=== PATIENT | male | born 1980 | race African-American/Black ===

== ENCOUNTER 2016-12-15 16:21 | Emergency (ER) | payer OTHER ==
[2016-12-15] MEDS ORDERED: ASPIRIN 81 MG TABLET, CHEWABLE PO ONE (17:13)
--- NOTE | 2016-12-15 17:13 | ER Document Report ---
ED Neck/Back Problem - General Information source: Patient TRAVEL OUTSIDE OF THE [place] IN LAST 30 DAYS: No - HPI Patient complains to provider of: Pain Quality of pain: Sharp Associated symptoms: Other - see above <MARICRUZ COLINDRES - Last Filed: 12/15/16 17:48> <YEIMY PADGETT - Last Filed: 12/15/16 19:14> - General Chief Complaint: Back Pain Stated Complaint: BACK/CHEST PAIN Time Seen by Provider: 12/15/16 17:01 Notes: Patient is a 36 year old male who presents to the ED with complaints of sharp back pain that radiates into his chest. Patient states that he felt like a squeezing pressure around his chest and ribs and states the pain shot up his entire back. Patient states this has happened a couple times in the past but states today it lasted approximately 5 minutes where he was doubled over on the couch waiting for the pain to subside. Patient denies any SOB. Patient believes that this is stemming from a malfunction with his spinal nerve stimulator. (MARICRUZ COLINDRES) Past Medical History - General Information source: Patient - Social History Smoking Status: Unknown if Ever Smoked Family History: Reviewed & Not Pertinent - Past Medical History Cardiac Medical History: Denies: Hx Heart Attack Renal/ Medical History: Denies: Hx Peritoneal Dialysis <MARICRUZ COLINDRES - Last Filed: 12/15/16 17:48> - Social History Smoking Status: Former Smoker <YEIMY PADGETT - Last Filed: 12/15/16 19:14> Review of Systems - Review of Systems Constitutional: No symptoms reported EENT: No symptoms reported Cardiovascular: See HPI, Chest pain Respiratory: See HPI. denies: Short of breath Gastrointestinal: No symptoms reported Genitourinary: No symptoms reported Male Genitourinary: No symptoms reported Musculoskeletal: See HPI, Back pain Skin: No symptoms reported Hematologic/Lymphatic: No symptoms reported Neurological/Psychological: No symptoms reported <MARICRUZ COLINDRES - Last Filed: 12/15/16 17:48> Physical Exam <MARICRUZ COLINDRES - Last Filed: 12/15/16 17:48> <YEIMY PADGETT - Last Filed: 12/15/16 19:14> - Vital signs Vitals: Temp Pulse Resp BP Pulse Ox 97.7 F 78 20 135/92 H 97 12/15/16 16:32 12/15/16 16:32 12/15/16 16:32 12/15/16 16:32 12/15/16 16:32 - Notes Notes: GENERAL: Alert, interacts well. No acute distress. HEAD: Normocephalic, atraumatic. EYES: Pupils equal, round, and reactive to light. Extraocular movements intact. ENT: Oral mucosa moist, tongue midline. NECK: Full range of motion. Supple. Trachea midline. LUNGS: Clear to auscultation bilaterally, no wheezes, rales, or rhonchi. No respiratory distress. HEART: Regular rate and rhythm. No murmurs, gallops, or rubs. ABDOMEN: Soft, non-tender. Non-distended. Bowel sounds present in all 4 quadrants. EXTREMITIES: Moves all 4 extremities spontaneously. No edema. No cyanosis. NEUROLOGICAL: Alert and oriented x3. Normal speech. PSYCH: Normal affect, normal mood. SKIN: Warm, dry, normal turgor. No rashes or lesions noted. (MARICRUZ COLINDRES) Course - Laboratory Result Diagrams: 12/15/16 17:24 12/15/16 17:24 <MARICRUZ COLINDRES - Last Filed: 12/15/16 17:48> - Laboratory Result Diagrams: 12/15/16 17:24 12/15/16 17:24 <YEIMY PADGETT - Last Filed: 12/15/16 19:14> - Re-evaluation Re-evalutation: 12/15/16 18:47 CBC unremarkable with the exception of a monocytosis, CMP grossly unremarkable, cardiac enzymes negative, EKG nonischemic although there are some nonspecific T- wave inversions. Chest x-ray does not reveal any pneumonia or pneumothorax, x-ray of the spine does not reveal any major displacement of the spinal stimulator. Patient is planning on following up with the inserting physician tomorrow. This completely resolved now, I do not know the etiology of this pain however I have low suspicion for pulmonary embolism or aortic dissection. Patient will be discharged home (YEIMY PADGETT) - Vital Signs Vital signs: Temp Pulse Resp BP Pulse Ox 97.7 F 78 21 H 124/88 H 98 12/15/16 16:32 12/15/16 16:32 12/15/16 18:23 12/15/16 18:23 12/15/16 18:23 - Laboratory Laboratory results interpreted by me: 12/15/16 12/15/16 17:24 17:24 Monocytes % 13.2 H Calcium 10.7 H Creatine Kinase 288 H Discharge <MARICRUZ COLINDRES - Last Filed: 12/15/16 17:48> <YEIMY PADGETT - Last Filed: 12/15/16 19:14> - Discharge Clinical Impression: Chest pain not due to acute coronary syndrome, Situational hypertension Condition: Stable Disposition: HOME, SELF-CARE Additional Instructions: Please follow-up with the doctor who inserted your spinal stimulator. Consider turning it down if these pains happen again. Please return if your pain worsens , changes or you develop fever or shortness of breath or any new or concerning symptoms including numbness or tingling. Your blood pressure was elevated on the first 2 readings today however normalized by the time you were discharged. This elevated blood pressure is likely a reaction to pain and anxiety about the visit however it is important that you continue to have your blood pressure monitored by your primary care physician. Scribe Attestation: 12/15/16 19:14 I personally performed the services described in the documentation, reviewed and edited the documentation which was dictated to the scribe in my presence, and it accurately records my words and actions. (YEIMY PADGETT) Scribe Documentation - Scribe Written by Antony:: antony Pelaez, 12/15/2016, 1748 acting as scribe for :: Maria Guadalupe <MARICRUZ COLINDRES - Last Filed: 12/15/16 17:48>
[2016-12-15 17:37] LABS: ABSOLUTE BASOPHILS # (AUTO) 0.1 10^3/uL (0.0-0.2); ABSOLUTE EOSINOPHILS # (AUTO) 0.3 10^3/uL (0.0-0.6); ABSOLUTE LYMPHOCYTES (AUTO) 2.3 10^3/uL (0.5-4.7); BASOPHILS % (AUTO) 1.1 % (0-2); EOSINOPHILS % (AUTO) 3.4 % (0-6); HEMATOCRIT 46.6 % (37.9-51.0); HEMOGLOBIN 16.1 g/dL (13.5-17.0); HGB HCT DIFFERENCE 1.7; LYMPHOCYTES % (AUTO) 29.9 % (13-45); MEAN CORPUSCULAR HEMOGLOBIN 29.2 pg (27.0-33.4); MEAN CORPUSCULAR HGB CONC 34.5 g/dL (32.0-36.0); MEAN CORPUSCULAR VOLUME 85 fl (80-97); MONOCYTES % (AUTO) 13.2 % (3-13); RED CELL DISTRIBUTION WIDTH 13.9 % (11.5-14.0); SEGMENTED NEUTROPHILS % (AUTO) 52.4 % (42-78); WHITE BLOOD COUNT 7.6 10^3/uL (4.0-10.5)
[2016-12-15 17:55] LABS: ALANINE AMINOTRANSFERASE 60 U/L (21-72); ALBUMIN 4.8 g/dL (3.5-5.0); ALKALINE PHOSPHATASE 60 U/L (38-126); ANION GAP 12 (5-19); ASPARTATE AMINO TRANSFERASE 23 U/L (17-59); BILIRUBIN,DIRECT 0.4 mg/dL (0.0-0.4); BILIRUBIN,TOTAL 0.7 mg/dL (0.2-1.3); BLOOD UREA NITROGEN 14 mg/dL (7-20); CALCIUM 10.7 mg/dL (8.4-10.2); CARBON DIOXIDE 24 mmol/L (22-30); CHLORIDE 105 mmol/L (98-107); CREATINE KINASE 288 U/L (55-170); CREATININE RESULT 1.13 mg/dL (0.52-1.25); GLUCOSE 93 mg/dL (75-110); POTASSIUM 4.2 mmol/L (3.6-5.0); SODIUM 141.2 mmol/L (137-145); TOTAL PROTEIN 7.9 g/dL (6.3-8.2)
[2016-12-15 18:13] LABS: CREATINE KINASE MB 2.42 ng/mL (<4.55); TROPONIN I < 0.012 ng/mL
--- NOTE | 2016-12-15 18:57 | RADIOLOGY REPORT (SQ) ---
EXAM DESCRIPTION: CHEST SINGLE VIEW COMPLETED DATE/TIME: 12/15/2016 6:20 pm REASON FOR STUDY: chest pain COMPARISON: None. EXAM PARAMETERS: NUMBER OF VIEWS: One view. TECHNIQUE: Single frontal radiographic view of the chest acquired. RADIATION DOSE: NA LIMITATIONS: None. FINDINGS: LUNGS AND PLEURA: No opacities, masses or pneumothorax. No pleural effusion. MEDIASTINUM AND HILAR STRUCTURES: No masses. Contour normal. HEART AND VASCULAR STRUCTURES: Heart normal in size. Normal vasculature. BONES: No acute findings. HARDWARE: None in the chest. OTHER: No other significant finding. IMPRESSION: NO ACUTE RADIOGRAPHIC FINDING IN THE CHEST. TECHNICAL DOCUMENTATION: JOB ID: [id number]
--- NOTE | 2016-12-15 19:00 | RADIOLOGY REPORT (SQ) ---
EXAM DESCRIPTION: SPINE ENTIRE AP/LAT COMPLETED DATE/TIME: 12/15/2016 6:20 pm REASON FOR STUDY: possible displacement of spinal stimulator COMPARISON: None. NUMBER OF VIEWS: Two views. TECHNIQUE: Standing AP and lateral exam of the spine. LIMITATIONS: None. FINDINGS: Thoracic nerve stimulator device tip overlies the lower T7 level in the midline of the spi nal canal. Bony structures intact. No congenital anomalies. Normal alignment. No significant curva ture. IMPRESSION: Thoracic nerve stimulator device tip overlies the lower T7 level in the midline of the s savage canal. TECHNICAL DOCUMENTATION: JOB ID: [id number] [employer]- All Rights Reserved
[2016-12-15 19:17] VITALS: BP 130/84
--- NOTE | 2016-12-15 23:19 | EKG REPORT ---
SEVERITY:- BORDERLINE ECG - SINUS RHYTHM BORDERLINE T ABNORMALITIES, INFERIOR LEADS : Confirmed by: Gabe Chong 15-Dec-2016 23:18:53
== END 2016-12-15 19:16 | disposition home or self-care (01) ==
LOC: ER 16:21
DX: R07.89 Other chest pain (principal); D72.821 Monocytosis (symptomatic); M54.9 Dorsalgia, unspecified; Z96.89 Presence of other specified functional implants; R03.0 Elevated blood-pressure reading, without diagnosis of hypertension
CPT/HCPCS: 36415; 71010; 72082; 80053; 82550; 82553; 84484; 85025; 93005; 93010; 99284

== ENCOUNTER 2017-06-26 18:54 | Emergency (ER) | payer OTHER ==
[2017-06-26 19:00] VITALS: BP 148/87
--- NOTE | 2017-06-26 19:49 | ER Document Report ---
ED General - General Chief Complaint: Dog Bite Stated Complaint: DOG BITE Time Seen by Provider: 06/26/17 19:24 Mode of Arrival: Ambulatory Information source: Patient TRAVEL OUTSIDE OF THE [place] IN LAST 30 DAYS: No - HPI Notes: 37-year-old male presents today with complaints of right forearm pain after pitbull female dog bit him while he is trying to break up a fight between his dog and another dog x 3 hours ago. Patient's last tetanus was approximately 10 years ago. Unsure of rabies status of his dog. Pain 5/10, achy. Denies any head trauma or change in loc. Denies any other areas of further injury. Denies any n/t in affected areas. No otc medications tried. Nothing makes better, worse when not moving extremity. Denies being on blood thinners. Denies fevers , chills, chest pain, shortness of breath, nausea, vomiting, diarrhea, abdominal pain, hematuria,blurred vision, double vision, loss of vision, speech changes, LH, dizziness, syncope, headaches, neck pain, weakness, bowel or bladder dysfunction, saddle anesthesia, numbness or tingling in bilateral upper or lower extremities equally, muscle paralysis, weakness in bilateral upper or lower extremities equally or rash . - Related Data Allergies/Adverse Reactions: No Known Allergies Allergy (Unverified 06/26/17 18:58) Past Medical History - General Information source: Patient - 9 - Social History Smoking Status: Unknown if Ever Smoked Family History: Reviewed & Not Pertinent - Past Medical History Cardiac Medical History: Denies: Hx Heart Attack Renal/ Medical History: Denies: Hx Peritoneal Dialysis Past Surgical History: Reports: Hx Orthopedic Surgery - spinal stimulator - Immunizations Hx Diphtheria, Pertussis, Tetanus Vaccination: No Review of Systems - Review of Systems Constitutional: No symptoms reported EENT: No symptoms reported Cardiovascular: No symptoms reported Respiratory: No symptoms reported Gastrointestinal: No symptoms reported Genitourinary: No symptoms reported Male Genitourinary: No symptoms reported Musculoskeletal: See HPI Skin: See HPI Hematologic/Lymphatic: No symptoms reported Neurological/Psychological: No symptoms reported Physical Exam - Vital signs Vitals: Temp Pulse Resp BP Pulse Ox 98.4 F 101 H 20 148/87 H 94 06/26/17 18:59 06/26/17 18:59 06/26/17 18:59 06/26/17 18:59 06/26/17 18:59 - Notes Notes: PHYSICAL EXAMINATION: GENERAL: Well-appearing, well-nourished and in no acute distress. HEAD: Atraumatic, normocephalic. EYES: Pupils equal round and reactive to light, extraocular movements intact, sclera anicteric, conjunctiva are normal. ENT: Nares patent, oropharynx clear without exudates. Moist mucous membranes. NECK: Normal range of motion, supple without lymphadenopathy LUNGS: Breath sounds clear to auscultation bilaterally and equal. No wheezes rales or rhonchi. HEART: Regular rate and rhythm without murmurs ABDOMEN: Soft, nontender, nondistended abdomen. No guarding, no rebound. No masses appreciated. Musculoskeletal: Normal range of motion, no pitting or edema. No cyanosis. 2 puncture wounds to rightd. full APROM. cap refill < 3 seconds. gas appliance mechanic + 2 bilaterally. full motor and sensory function bilaterally and equally in hands and fingers. Normal opposition, abduction, abduction, inversion and eversion of fingers in left hand. Strength 5 out of 5 in bilateral upper extremities equally. [address] + 2 BUE equally. APROM in shoulder. DTR +2 in BUE equally. Noted crepitus with APROM in elbow. No vascular compromise. No noted swelling, abrasions, ecchymosis, lacerations, scars of recent trauma. No erythema or induration noted to area. NEUROLOGICAL: Cranial nerves grossly intact. Normal speech, normal gait. Normal sensory, motor exams PSYCH: Normal mood, normal affect. SKIN: Warm, Dry, normal turgor, no rashes or lesions noted. Course - Re-evaluation Re-evalutation: After performing a Medical Screening Examination, I spoke with the patient at length in regards to leaving the hospital against medical advice. Patient did not want x-ray because he did not want to pay for although risk were described such as risk of foreign body, fracture from dog bite. Discussed with patient that he should get another tetanus since his last one was likely 10 years ago. Patient states that he does not need one because he [facility] Requested that we could just "clean it out so I can leave", this provider explained to him the importance of assessing for foreign bodies, thorough irrigation, tetanus vaccination, starting antibiotic, filling out dog bite information to send to the health department as well as animal control since he does not know if his dog is vaccinated against rabies and was bitten by stray. Patient said he wanted to [facility] because [facility] for him. I do not believe the patient should leave but the patient is alert oriented x4, understands the risks and benefits of staying and leaving including disability and . Pt understands that he can return at any time for further care and is more than welcome to do so. Pt verbalizes this understanding. After performing a Medical Screening Examination, I estimate there is LOW risk for OPEN FRACTURE, COMPARTMENT SYNDROME, TENDON RUPTURE, ACUTE NEUROVASCULAR INJURY, or RETAINED FOREIGN BODY, thus I consider the discharge disposition reasonable. Also, there is no evidence or peritonitis, sepsis, or toxicity. I have reevaluated this patient multiple times and no significant life threatening changes are noted. The patient and I have discussed the diagnosis and risks, and we agree with discharging home with close follow-up with the understanding that symptoms and presentations can change. We also discussed returning to the Emergency Department immediately if new or worsening symptoms occur. We have discussed the symptoms which are most concerning (e.g., changing or worsening pain, fever, numbness, weakness, cool or painful digits) that necessitate immediate return. - Vital Signs Vital signs: Temp Pulse Resp BP Pulse Ox 98.4 F 101 H 20 148/87 H 94 06/26/17 18:59 06/26/17 18:59 06/26/17 18:59 06/26/17 18:59 06/26/17 18:59 Discharge - Discharge Clinical Impression: Dog bite Qualifiers: Encounter type: initial encounter Qualified Code(s): W54.0XXA - Bitten by dog, initial encounter Condition: Good Disposition: AGAINST MEDICAL ADVICE Instructions: Animal Bites ([facility]), Puncture Wound ([facility]), Clindamycin ([facility]), Ciprofloxacin ([facility]) Additional Instructions: Animal Bites Animal bites are often heavily contaminated with bacteria. In spite of thorough cleansing and proper treatment, these wounds frequently become infected. Bite wounds of the hands are especially prone to complications. Bites are dressed, if possible. Large wounds may require suturing after internal cleansing. Because of infection risk, some large wounds must remain unstitched. Your doctor is trained to advise you on the best treatment for your bite. Call the doctor at once if the wound becomes red, swollen, warm, increasingly painful, or if it begins to drain. Danger signs also include red streaks up the involved extremity, swollen glands in the groin or under the arm , or fever and chills. The risk of rabies from domestic animals is very low. Bats, sick animals, and wild animals may expose you to rabies. The physician, or the health department, will inform you if you will need to receive the rabies vaccine. Cellulitis You have an infection of your skin and underlying soft tissues called cellulitis. This is due to bacteria, which can enter through any break in the skin, or even through an irritated hair follicle. Untreated, cellulitis will usually worsen. Antibiotics are required. Usually, warm packs or warm soaks, and elevation of the infected area are recommended. You should start getting better within 24 to 36 hours. Most infections respond quickly to the right medication. Follow-up care is important, however, to check for abscess (boil) formation, unsuspected foreign body, or resistant infection. If you develop fever, chills, or if the area of infection is becoming rapidly more swollen or painful, call the doctor at once. Rabies Prophylaxis Rabies immunization can prevent infection with the rabies virus. This virus is always fatal if it reaches the nervous system. Exposure to an infected animal's saliva requires a series of shots. If you're already immunized, you may need only a booster shot. It's critical for you to follow the exact schedule of immunizations. After the first shot, we give repeat doses in 3 days, 7 days, 14 days, and 28 days. The repeat doses can also be given through the Health Department or by special arrangement with your doctor. Ibuprofen or acetaminophen can be used for aching and swelling at the injection site. Call the doctor or return if you develop increasing pain, fever , chills, or spreading redness, or if you become short of breath or faint. Please follow up with the [facility] [address] [address] Forms: Return to Work Referrals: ALFREDO CHAPARRO MD [ACTIVE STAFF] - Follow up in 3-5 days SAMMY SHIPLEY MD [ACTIVE STAFF] - Follow up as needed
--- NOTE | 2017-06-26 20:18 | RADIOLOGY REPORT (SQ) ---
EXAM DESCRIPTION: FOREARM RIGHT COMPLETED DATE/TIME: 06/26/2017 8:03 pm REASON FOR STUDY: dog bite to forearm. r/o fx or fb COMPARISON: None. NUMBER OF VIEWS: Two views. TECHNIQUE: Two radiographic images acquired of the right forearm, including elbow and wrist in at le ast one projection. LIMITATIONS: None. FINDINGS: MINERALIZATION: Normal. BONES: No acute fracture. No worrisome bone lesions. SOFT TISSUES: Mild dorsal swelling. No radiopaque foreign body. OTHER: No other significant finding. IMPRESSION: No fracture or radiopaque foreign body. TECHNICAL DOCUMENTATION: JOB ID: [id number] [place]-72 2010 [employer]- All Rights Reserved
== END 2017-06-26 20:03 | disposition left against medical advice (07) ==
LOC: ER 18:54
DX: S51.851A Open bite of right forearm, initial encounter (principal); W54.0XXA Bitten by dog, initial encounter; Y92.009 Unspecified place in unspecified non-institutional (private) residence as the place of occurrence of the external cause
CPT/HCPCS: 99283

== ENCOUNTER 2017-07-19 21:48 | Emergency (ER) | payer OTHER ==
[2017-07-19 22:00] VITALS: BP 140/80
[2017-07-19] MEDS ORDERED: ACETAMINOPHEN 325 MG TABLET PO ONE (22:38)
[2017-07-19] MEDS ORDERED: IBUPROFEN 600 MG TABLET PO ONE (22:38)
--- NOTE | 2017-07-19 22:50 | ER Document Report ---
ED General - General Chief Complaint: Ankle Pain Stated Complaint: FOOT PAIN Time Seen by Provider: 07/19/17 22:37 Notes: Patient is a 37-year-old male with a past medical history of obesity who presents with right foot pain. Patient states that he went for a run for the first time in 5 years after being told by coworkers that he had become overweight and needed to begin exercising more regularly. Patient states that several hours after going for the run he began to have a dull, constant throbbing pain to the lateral top portion of his right foot. He has tried ibuprofen with minimal improvement of the pain. Walking or touching the area worsens the pain. He denies any history of similar symptoms in the past. He denies any weakness or numbness. No spreading redness or erythema to the area. He has not seen his primary care doctor regarding today's concerns. TRAVEL OUTSIDE OF THE [place] IN LAST 30 DAYS: No - Related Data Allergies/Adverse Reactions: No Known Allergies Allergy (Unverified 06/26/17 18:58) Past Medical History - General Information source: Patient - Social History Smoking Status: Never Smoker Frequency of alcohol use: None Drug Abuse: None Lives with: Family Family History: Reviewed & Not Pertinent - Past Medical History Cardiac Medical History: Denies: Hx Heart Attack Renal/ Medical History: Denies: Hx Peritoneal Dialysis Past Surgical History: Reports: Hx Orthopedic Surgery - spinal stimulator - Immunizations Hx Diphtheria, Pertussis, Tetanus Vaccination: No Review of Systems - Review of Systems Notes: Constitutional: Negative for fever. HENT: Negative for sore throat. Eyes: Negative for visual changes. Cardiovascular: Negative for chest pain. Respiratory: Negative for shortness of breath. Gastrointestinal: Negative for abdominal pain, vomiting or diarrhea. Genitourinary: Negative for dysuria. Musculoskeletal: Positive for right foot pain Skin: Negative for rash. Neurological: Negative for headaches, weakness or numbness. 10 point ROS negative except as marked above and in HPI. Physical Exam - Vital signs Vitals: Temp Pulse Resp BP Pulse Ox 97.7 F 81 20 140/80 H 98 07/19/17 21:57 07/19/17 21:57 07/19/17 21:57 07/19/17 21:57 07/19/17 21:57 Interpretation: Hypertensive Notes: PHYSICAL EXAMINATION: GENERAL: Well-appearing, well-nourished and in no acute distress. HEAD: Atraumatic, normocephalic. EYES: sclera anicteric, conjunctiva are normal. ENT: Moist mucous membranes. NECK: Normal range of motion LUNGS: Normal work of breathing HEART: 2+ radial pulses bilaterally EXTREMITIES: no pitting or edema. No cyanosis. Normal dorsi and plantar flexion of the right foot. There is no pain over the navicula, at the base of the fifth metatarsal, or the medial or lateral malleolus. Patient is able to bear weight. No obvious deformity to the foot. NEUROLOGICAL: No focal neurological deficits. Moves all extremities spontaneously and on command. PSYCH: Normal mood, normal affect. SKIN: Warm, Dry, normal turgor, no rashes or lesions noted. Course - Re-evaluation Re-evalutation: 07/19/17 22:48 Patient presents with pain along the lateral mid top portion of his right foot after going for a run. Patient admits that he is not ran in 5 years but the pain got progressively worse several hours after going to the run. He is morbidly obese and I do anticipate that he is likely because a soft tissue swelling or stress fracture to the area. He has no pain at the base of the fifth metatarsal, no lateral or medial malleolar tenderness, no pain over the navicular. He is [place] ankle and foot criteria negative. He has declined an x- ray. I have encouraged her to ice the area, take ibuprofen regularly, continue to lose weight and have a gradual return to exercise. At this time will discharge with return precautions and follow-up recommendations. Verbal discharge instructions given a the bedside and opportunity for questions given. Medication warnings reviewed. Patient is in agreement with this plan and has verbalized understanding of return precautions and the need for primary care follow-up in the next 24-72 hours. - Vital Signs Vital signs: Temp Pulse Resp BP Pulse Ox 97.7 F 81 20 140/80 H 98 07/19/17 21:57 07/19/17 21:57 07/19/17 21:57 07/19/17 21:57 07/19/17 21:57 Discharge - Discharge Clinical Impression: Right foot pain, Morbid obesity Condition: Good Disposition: HOME, SELF-CARE Additional Instructions: Your history seems to be most consistent with soft tissue swelling or stress fracture. You have declined an x-ray. You should continue to take anti- inflammatories such as ibuprofen 600 mg every 6 hours. Continue to apply ice to the area is much your able. Please follow-up with your primary care physician if you do not have improving your symptoms in the next 1-2 weeks. Please return immediately if you develop weakness, numbness, spreading redness from the area, or any other symptoms that are concerning to you. As we discussed today, please strongly consider losing weight. Your obesity will result in a shorter life and serious diagnoses including heart attacks, stroke, diabetes, high blood pressure, high cholesterol, kidney failure, and will also result in a much less enjoyable life due to these chronic conditions. Focus on gradual life style changes including removing sugared beverages and processed foods from your diet abd at least 30 minutes of moderate activity daily. Try to target 4-5lbs of weight loss per month.
== END 2017-07-19 23:07 | disposition home or self-care (01) ==
LOC: ER 21:48
DX: M79.671 Pain in right foot (principal); M25.571 Pain in right ankle and joints of right foot; E66.01 Morbid (severe) obesity due to excess calories
CPT/HCPCS: 99283